=== PATIENT | male | born 1975 | race Caucasian/White ===

== ENCOUNTER 2022-01-31 07:08 | Outpatient (CLI) | payer BC ==
[~2022-01-31] VITALS: Ht 177.8 cm; Wt 102.0 kg
[2022-01-31] MEDS ORDERED: ATOR10TA66 PO (12:20)
[2022-01-31] MEDS ORDERED: [UNRECOGNIZED DRUG - CODE] OP (12:20)
== END 2022-01-31 12:32 ==
LOC: PREOP 07:08
PROVIDERS: ATTEND Internal Medicine
DX: Z01.818 Encounter for other preprocedural examination (principal)